=== PATIENT | female | born 1990 | race Caucasian/White ===

== ENCOUNTER 2021-03-29 13:09 | Emergency (ER) | payer BC ==
[2021-03-29] MEDS ORDERED: Alum Hydrox/Mag Hydrox/Simeth 30 ML, Lidocaine 2% 15 ML PO ONE ×2 (13:32)
--- NOTE | 2021-03-29 13:42 | EDM.PDOC ---
ED HPI GENERAL MEDICAL PROBLEM - General Chief Complaint: Abdominal Pain Stated Complaint: MAJOR STOMACH PAINS Time Seen by Provider: 03/29/21 13:30 Source of Information: Reports: Patient History Limitations: Reports: No Limitations - History of Present Illness INITIAL COMMENTS - FREE TEXT/NARRATIVE: Annabelle is a 30 yo female who presents to the ED via private vehicle with compla ints of midepigastric and left upper quadrant abdominal pain. States it woke her up last night and has remained constant. Denies any history of GERD. No history of ulcer. 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 States she does have chronic diarrhea. Denies any bloody stools. States she take iron supplementation and always has dark stools. Admits to decreased appetite. Hasn't really drank anything today either. No alcohol, tobacco use. States she does drink a small amount of soda daily. No coffee use. Admits to hysterectomy in the past as well. No urinary complaints. Duration: Constant Location: Reports: Abdomen Left Upper Abdomen Pain Score (Numeric/FACES): 9 - Related Data Allergies Allergy/AdvReac Type Severity Reaction Status Date / Time No Known Allergies Allergy Verified 03/29/21 13:17 Home Meds: Home Meds Ferrous Sulfate [Iron] 325 mg PO DAILY 03/29/21 [History] Loratadine [Claritin] 10 mg PO DAILY 03/29/21 [History] Vortioxetine Hydrobromide [Trintellix] 15 mg PO DAILY 03/29/21 [History] Past Medical History HEENT History: Reports: Allergic Rhinitis Gastrointestinal History: Reports: Irritable Bowel Syndrome (status post cholecystectomy) Psychiatric History: Reports: Depression - Past Surgical History GI Surgical History: Reports: Cholecystectomy Female Surgical History: Reports: Hysterectomy Social & Family History - Tobacco Use Tobacco Use Status *Q: Never Tobacco User - Caffeine Use Caffeine Use: Reports: None ED ROS GENERAL - Review of Systems Review Of Systems: See Below Constitutional: Reports: Decreased Appetite. Denies: Fever, Chills HEENT: Reports: No Symptoms Respiratory: Reports: No Symptoms. Denies: Shortness of Breath, Wheezing, Cough Cardiovascular: Reports: No Symptoms GI/Abdominal: Reports: Abdominal Pain (epigastric and LUQ), Diarrhea, Decreased Appetite, Nausea. Denies: Bloody Stool, Constipation, Hematemesis, Hematochezia, Vomiting : Reports: No Symptoms. Denies: Dysuria, Flank Pain, Frequency, Hematuria Musculoskeletal: Reports: No Symptoms. Denies: Back Pain Skin: Reports: No Symptoms Neurological: Reports: No Symptoms ED EXAM, GI/ABD - Physical Exam Exam: See Below Exam Limited By: No Limitations General Appearance: Alert, No Apparent Distress Ears: Normal External Exam, Normal Canal, Hearing Grossly Normal, Normal TMs Nose: Normal Inspection, Normal Mucosa, No Blood Throat/Mouth: Normal Inspection, Normal Lips, Normal Teeth, Normal Gums, Normal Oropharynx, Normal Voice, No Airway Compromise Head: Atraumatic, Normocephalic Neck: Normal Inspection, Supple Respiratory/Chest: No Respiratory Distress, Lungs Clear, Normal Breath Sounds, No Accessory Muscle Use Cardiovascular: Normal Peripheral Pulses, Regular Rate, Rhythm, No Murmur GI/Abdominal Exam: Normal Bowel Sounds, Soft, No Organomegaly, No Distention, Pelvis Stable, Tender (epigastric and LUQ on palpation) Extremities: Normal Inspection, No Pedal Edema Neurological: Alert, Oriented, Normal Cognition Psychiatric: Normal Affect, Normal Mood Skin Exam: Warm, Dry, Intact, Normal Color, No Rash Course - Vital Signs Last Recorded V/S: Last Vital Signs Temp 98.7 F 03/29/21 13:26 Pulse 62 03/29/21 13:26 Resp 16 03/29/21 13:26 BP 135/88 03/29/21 13:26 Pulse Ox 100 03/29/21 13:26 - Orders/Labs/Meds Orders: Active Orders 24 hr Category Date Time Status OCCULT BLOOD SCREEN [OP] Stat Lab 03/29/21 13:26 Ordered Labs: Laboratory Tests 03/29/21 03/29/21 03/29/21 Range/Units 13:25 13:25 13:25 WBC 6.0 (4.0-11.0) 10^3/uL RBC 4.10 (4.00-5.50) x10^6/uL Hgb 12.2 (12.0-16.0) g/dL Hct 37.7 (37.0-47.0) % MCV 92.0 (83.0-97.0) fL MCH 29.8 (27.0-32.0) pg MCHC 32.4 (32.0-36.0) g/dL RDW Coeff of [place] 13.0 (11.0-15.0) % Plt Count 166 (150-400) 10^3/uL Immature Gran % (Auto) 0.0 (0.0-4.9) % Neut % (Auto) 61.1 (41-71) % Lymph % (Auto) 30.1 (24-44) % [place] % (Auto) 6.0 (0-10) % Eos % (Auto) 2.3 (0-6) % Baso % (Auto) 0.5 (0-1) % Neut # (Auto) 3.68 (1.80-8.00) x10^3/uL Lymph # (Auto) 1.81 (0.60-5.00) 10^3/uL [place] # (Auto) 0.36 (0.00-1.50) 10^3/uL Eos # (Auto) 0.14 (0.00-1.50) 10^3/uL Baso # (Auto) 0.03 (0.00-0.50) 10^3/uL Immature Gran # (Auto) 0.00 (0.00-0.49) 10^3/uL Sodium 142 (136-145) mEq/L Potassium 4.0 (3.5-5.0) mEq/L Chloride 107 H (98-106) mEq/L Carbon Dioxide 29 (21-32) mmol/L BUN 10 (7-18) mg/dL Creatinine 0.8 (0.6-1.0) mg/dL Est Cr Clr Drug Dosing 79.85 mL/min Estimated GFR (MDRD) > 60 (>=60) mL/min Glucose 93 (75-99) mg/dL Calcium 8.9 (8.4-10.1) mg/dL Total Bilirubin 0.5 (0.0-1.0) mg/dL AST 13 L (15-37) U/L ALT 19 (12-78) U/L Alkaline Phosphatase 91 (46-116) U/L C-Reactive Protein < 0.2 L (0.2-0.8) mg/dL Total Protein 7.4 (6.4-8.2) g/dL Albumin 4.1 (3.4-5.0) g/dL Amylase 55 (25-115) U/L Lipase 68 L (73-393) U/L Urine Color Yellow (YELLOW) Urine Appearance Clear (CLEAR) Urine pH 7.0 (4.5-8.0) Ur Specific [place] 1.025 H (1.003-1.020) Urine Protein Negative (NEGATIVE) mg/dL Urine Glucose (UA) Negative (NEGATIVE) mg/dL Urine Ketones Negative (NEGATIVE) mg/dL Urine Occult Blood Negative (NEGATIVE) Urine Nitrite Negative (NEGATIVE) Urine Bilirubin Negative (NEGATIVE) Urine Urobilinogen 0.2 (0.2-1.0) EU/dL Ur Leukocyte Esterase Negative (NEGATIVE) Meds: Medications Discontinued Medications Generic Name Dose Route Start Last Admin Trade Name Freq PRN Reason Stop Dose Admin Al Hydroxide/Mg Hydroxide 30 0 ml 03/29/21 13:32 03/29/21 13:35 ml/ Lidocaine HCl 15 ml PO 03/29/21 13:33 45 ml ONETIME ONE Administration Departure - Departure Time of Disposition: 14:41 Disposition: Home, Self-Care 01 Clinical Impression: Peptic ulcer, Gastritis - Discharge Information Instructions: Peptic Ulcer, [id number], Gastritis, Adult, [id number] Referrals: Benny Osorio MD [Primary Care Provider] - Forms: ED Department Discharge Additional Instructions: 1) Carafate 1gm - 1 tablet 4 times a day 2) Pantoprazole 40mg - 1 table daily 3) Refrain from alcohol, caffeine, chocolate, spicy foods, etc... Do not take any NSAIDs 4) If symptoms worsen or any concerns, advise reevaluation. Sepsis Event Note (ED) - Evaluation Sepsis Screening Result: No Definite Risk - Focused Exam Vital Signs: Vital Signs Temp Pulse Resp BP Pulse Ox 03/29/21 13:26 98.7 F 62 16 135/88 100 - Problem List & Annotations (1) Gastritis SNOMED Code(s): 4740836 Code(s): K29.70 - GASTRITIS, UNSPECIFIED, WITHOUT BLEEDING Status: Acute Current Visit: Yes Qualifiers: Gastritis type: unspecified gastritis Chronicity: acute Gastritis bleeding: without bleeding Qualified Code(s): K29.00 - Acute gastritis without bleeding (2) Peptic ulcer SNOMED Code(s): 00669311 Code(s): K27.9 - PEPTIC ULC, SITE UNSP, UNSP AC OR CHR, W/O HEMOR OR PERF Status: Acute Current Visit: Yes - My Orders Last 24 Hours: My Active Orders 03/29/21 13:26 OCCULT BLOOD SCREEN [OP] Stat - Assessment/Plan Last 24 Hours: My Active Orders 03/29/21 13:26 OCCULT BLOOD SCREEN [OP] Stat Plan: Patient's laboratory work up was unremarkable today. GI cocktail given with relief noted. Will discharge home at this time with protonix and carafate. See additional instructions.
[2021-03-29 14:02] LABS: CHLORIDE,CL 107 mEq/L (98-106); SODIUM,NA 142 mEq/L (136-145)
== END 2021-03-29 14:50 | disposition home or self-care (01) ==
LOC: SUPCPDRO 13:09 → CC.ED 13:09
DX: K27.9 Peptic ulcer, site unspecified, unspecified as acute or chronic, without hemorrhage or perforation (principal); K29.70 Gastritis, unspecified, without bleeding
CPT/HCPCS: 36415; 80053; 81003; 82150; 83690; 85025; 86140; 99284; A9270-GY

== ENCOUNTER → 2021-08-10 | Day surgery (SDC) | payer BC ==
[~2021-08-10] MED LIST: Ketamine 200 MG/20 ML MDV ONE; Lactated Ringers 1,000 ML IV SCH; Propofol 200 MG/20 ML SDV ONE; fentaNYL 100 MCG/2 ML SDV ONE
== END ==
LOC: CC.SDS 11:20
PROVIDERS: ATTEND Family Medicine
DX: K52.9 Noninfective gastroenteritis and colitis, unspecified (principal); J45.909 Unspecified asthma, uncomplicated; F32.A Depression, unspecified; E78.00 Pure hypercholesterolemia, unspecified; K21.9 Gastro-esophageal reflux disease without esophagitis; Z79.899 Other long term (current) drug therapy
CPT/HCPCS: 00811; J2704; J3010

== ENCOUNTER 2023-01-26 14:35 | Emergency (ER) | payer BC ==
[2023-01-26 14:52] LABS: APPEARANCE,URINE CLEAR (CLEAR); BILIRUBIN,URINE NEGATIVE (NEGATIVE); COLOR,URINE YELLOW (YELLOW); GLUCOSE,URINE NEGATIVE (NEGATIVE); KETONES,URINE NEGATIVE (NEGATIVE); LEUKOCYTE ESTERASE,URINE TRACE (NEGATIVE); NITRITE,URINE NEGATIVE (NEGATIVE); OCCULT BLOOD,URINE TRACE-INTACT (NEGATIVE); PH,URINE 5.5 (4.5-8.0); PROTEIN,URINE NEGATIVE (NEGATIVE); UROBILINOGEN,URINE 0.2 EU/dL (0.2-1.0)
[2023-01-26 15:05] LABS: BACTERIA,URINE FEW /HPF (NOT SEEN); RBC,URINE 0-5 /HPF (0-5); SQUAMOUS EPITHELIAL CELLS,UR FEW /HPF (NOT SEEN)
[2023-01-26] MEDS ORDERED: Nitrofurantoin Monohydrate/Macrocrystalline 100 MG Cap PO STA (15:54)
== END 2023-01-26 16:00 | disposition home or self-care (01) ==
LOC: CC.ED 14:35
DX: N30.90 Cystitis, unspecified without hematuria (principal); Z79.899 Other long term (current) drug therapy
CPT/HCPCS: 81001; 99283; A9270-GY

== ENCOUNTER 2024-03-26 12:51 | Day surgery (SDC) | payer BC ==
[~2024-03-26 12:51] MED LIST changes: -Ketamine 200 MG/20 ML MDV ONE; -Lactated Ringers 1,000 ML IV SCH; -Propofol 200 MG/20 ML SDV ONE; +Sodium Chloride 0.9% 10 ML Syringe FLUSH PRN; -fentaNYL 100 MCG/2 ML SDV ONE
[2024-03-26] MEDS ORDERED: fentaNYL 50 MCG/ML SDV ONE (13:24)
[2024-03-26] MEDS ORDERED: Ketamine 200 MG/20 ML MDV ONE (13:24)
[2024-03-26] MEDS ORDERED: Propofol 200 MG/20 ML SDV ONE (13:24)
[2024-03-26] MEDS ORDERED: Lidocaine 2% 20 ML MDV ONE (13:24)
== END 2024-03-26 14:32 | disposition home or self-care (01) ==
LOC: CC.SDS 12:51
PROVIDERS: ATTEND Family Medicine
DX: K29.50 Unspecified chronic gastritis without bleeding (principal); K21.9 Gastro-esophageal reflux disease without esophagitis
CPT/HCPCS: 00811; 87081; J2704; J3010; J3490